=== PATIENT | female | born 1945 | race Caucasian/White ===

== ENCOUNTER 2018-07-18 09:39 | Emergency (ER) | payer MEDICARE, OTHER ==
[~2018-07-18] VITALS: Ht 160 cm; Wt 72.6 kg
[~2018-07-18 09:39] MED LIST: LOSARTAN; ZOCOR
--- OUTSIDE RECORDS SUMMARY | 2018-07-18 09:41 | XMS REPORT | Clinical Summary ---
Author Author L[facility] HospitalSevenSnap Entertainment GmbHSt[facility] [place] Address Unknown Phone Unavailable Care Team Providers Care Preschool Adviser Name Role Phone Pcp, No PCP Unavailable Allergies Comments Active Allergy Reactions Severity Noted Date Penicillins Anaphylaxis, High 04/08/2018 Hives Medications End Date Status Medication Sig Dispensed Refills Start Date Active difluprednate (DUREZOL) Apply to 0 0.05 % Drop eye(s). Active fluorometholone (FML) 0.1 1 drop every 0 % ophthalmic suspension 4 (four) hours. Active gabapentin (NEURONTIN) Take 300 mg 0 300 MG capsule by mouth 3 (three) times daily. Active losartan (COZAAR) 100 MG Take 100 mg 0 tablet by mouth daily. Active methenamine (HIPREX) 1 Take 1 g by 0 gram tablet mouth 2 (two) times daily with breakfast and dinner. Active omeprazole (PRILOSEC) 20 Take 20 mg by 0 MG capsule mouth daily. Active prednisoLONE acetate 1 drop 4 0 (PRED FORTE) 1 % (four) times ophthalmic suspension daily. Active simvastatin (ZOCOR) 20 MG Take 20 mg by 0 tablet mouth nightly. Active polymyxin B 1 drop every 0 sulf-trimethoprim 10,000 4 (four) unit- 1 mg/mL Drop hours. Active aspirin 81 MG EC tablet Take 81 mg by 0 mouth daily. Active albuterol sulfate Inhale by 0 (VENTOLIN INHL) mouth via inhaler. Active coenzyme Q10 100 mg Take 100 mg 0 capsule by mouth daily. Active calcium carbonate-vitamin Take 1 tablet 0 D3 (CALCIUM-VITAMIN D) by mouth 2 500 mg(1,250mg) -200 unit (two) times per tablet daily with breakfast and dinner. Active magnesium 30 mg tablet Take 30 mg by 0 mouth 2 (two) times daily. Active b complex vitamins Take 1 0 capsule capsule by mouth daily. Active multivitamin capsule Take 1 0 capsule by mouth daily. 04/08/2018 Discontinued metoclopramide HCl Take 10 mg by 0 (REGLAN) 10 MG tablet mouth 4 (four) times daily as needed for Nausea. 04/08/2018 Discontinued moxifloxacin (VIGAMOX) 1 drop 3 0 0.5 % ophthalmic solution (three) times daily. 04/08/2018 Discontinued prednisoLONE acetate 1 drop 4 0 (PRED MILD) 0.12 % (four) times ophthalmic suspension daily. Active Problems Not on file Encounters Care Team Description Date Type Specialty Juan Ramon Campos MD KERATOPLASTY,DSAEK 04/09/2018 Surgery Abby Robledo 04/09/2018 Anesthesia Event Juan Ramon Campos MD 04/09/2018 Hospital Encounter 04/08/2018 Hospital Pre-Admission Testing Encounter after 07/17/2017 Social History Date Tobacco Use Types Packs/Day Years Used Never Smoker Smokeless Tobacco: Never Used Alcohol Use Drinks/Week oz/Week Comments No Alcohol Habits Answer Date Recorded How often do you have a drink containing alcohol? Never 04/08/2018 How many drinks containing alcohol do you have on Not asked a typical day when you are drinking? How often do you have six or more drinks on one Not asked occasion? Sex Assigned at Date Recorded Not on file Industry Job Start Date Occupation Not on file Not on file Not on file Travel End Travel History Travel Start No recent travel history available. Last Filed Vital Signs Time Taken Vital Sign Reading 04/09/2018 12:40 PM [facility] Blood Pressure 124/60 04/09/2018 12:40 PM [facility] Pulse 60 04/09/2018 10:56 AM [facility] Temperature 36.4 C (97.6 F) 04/09/2018 12:40 PM [facility] Respiratory Rate 14 04/09/2018 12:40 PM [facility] Oxygen Saturation 95% - Inhaled Oxygen - Concentration 04/08/2018 9:43 AM [facility] Weight 70.3 kg (155 lb) 04/08/2018 9:43 AM [facility] Height 154.9 cm (5' 1") 04/08/2018 9:43 AM [facility] Body Mass Index 29.29 Plan of Treatment Not on file Implants Device Identifier Shelf Expiration Date Model / Serial / Lot Implanted Type Area Manufactur er 11/28/2021 [id number] / [id number] / Iol Tecnis Zcb00 25.0 Rafi Ophthalmol Left: Eye ADV MED [id number] - [id number] ogy OPTICS Implanted: Qty: 1 on 04/09/2018 by Juan Ramon Campos MD 04/19/2018 [id number] / [id number] / Cornea Dmek Tissue Ophthalmol Left: Eye Unknown Implanted: Qty: 1 on 04/09/2018 by Juan Ramon Sheldon MD 07/30/2019 [id number] / / [id number] Gas Tank Ispan Sf6 [id number] - Ophthalmol Left: Eye CELIA [id number] ogy LAB:SURG Implanted: Qty: 1 on 04/09/2018 by Juan Ramon Campos MD Procedures Comments Procedure Name Priority Date/Time Associated Diagnosis EXTRACTION,CATARACT W/IOL 04/09/2018 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
--- NOTE | 2018-07-18 09:55 | NUR ---
URINE SENT FOR CX OBTAINED PER ORDER
[2018-07-18] MEDS ORDERED: SODIUM CHLORIDE 0.9% 1000ML 1,000 ML IV SCH (10:15)
[2018-07-18] MEDS ORDERED: ACETAMINOPHEN 325 MG TAB PO ONE (10:15)
[2018-07-18 10:49] LABS: CLARITY,URINE SL CLOUDY (CLEAR); COLOR,URINE YELLOW (YELLOW); LEUKOCYTE ESTERASE ,URINE 1+ (NEGATIVE); NITRITE,URINE NEGATIVE (NEGATIVE); PROTEIN,URINE DIPSTICK TRACE (NEGATIVE)
[2018-07-18 10:50] LABS: BILIRUBIN,URINE NEGATIVE (NEGATIVE); KETONES,URINE NEGATIVE (NEGATIVE); URINE UROBILINOGEN 0.2 mg/dL (0.2 - 1)
[2018-07-18 11:11] LABS: BACTERIA,URINE MODERATE /HPF; EPITHELIAL CELLS,URINE RARE /LPF
[2018-07-18] MEDS ORDERED: CIPROFLOXACIN 500 MG TAB PO SCH (11:30)
[2018-07-18] MEDS ORDERED: METRONIDAZOLE 500MG/NS 100ML 100 ML IV ONE (11:30)
== END 2018-07-18 12:07 | disposition home or self-care (01) ==
LOC: FSED 09:39
DX: T83.511A Infection and inflammatory reaction due to indwelling urethral catheter, initial encounter (principal); Y84.6 Urinary catheterization as the cause of abnormal reaction of the patient, or of later complication, without mention of misadventure at the time of the procedure; Y92.009 Unspecified place in unspecified non-institutional (private) residence as the place of occurrence of the external cause; N30.91 Cystitis, unspecified with hematuria; R19.7 Diarrhea, unspecified; I10 Essential (primary) hypertension; E78.00 Pure hypercholesterolemia, unspecified
CPT/HCPCS: 81001; 81003; 87086; 87186; 87400; 99284; J7030

== ENCOUNTER 2019-03-17 10:23 | Emergency (ER) | payer OTHER, MEDICARE ==
[~2019-03-17] VITALS: Ht 154.9 cm; Wt 72.6 kg
--- NOTE | 2019-03-17 12:15 | Diagnostic Imaging Report ---
EXAM: TIB/FIB 2VW RT - HOPD, ANKLE 3 VIEW RT - HOPD DATE: 03/17/2019 12:00 AM INDICATION: Lower extremity pain COMPARISON: None FINDINGS: There is no evidence for acute fracture or dislocation. The ankle mortise is maintained. Bony mineralization is within normal limits. No focal lytic or blastic abnormality is identified. The surrounding soft tissues are unremarkable without evidence for radiopaque foreign body. IMPRESSION: No acute radiographic abnormality identified within the right tibia/fibula or ankle. Signed by: Dr. Kenneth Negron MD on 03/17/2019 12:12 PM
[2019-03-17 12:20] VITALS: BP 180/90
--- OUTSIDE RECORDS SUMMARY | 2019-03-20 13:13 | XMS REPORT | Summary of Care ---
Author Author [facility] Organization [facility] Address Unknown Phone Unavailable Care Team Providers Care Casting Machine Operator Helper Name Role Phone PCP Unavailable Reason for Visit * Reason Comments Retinal Problem * Consult, Test & Treat (Routine) Referred By Contact Referred To Contact Status Reason Specialty Diagnoses / Procedures Manjula Tucker MD [address] [address] Manjula Tucker MD [address] [place] [id number] Incomplete Ophth Retina Diagnoses Specialist / per [facility] Ophthalmology P rocedures RETINA NPE W ODS Encounter Details Care Team Description Date Type Department Manjula Tucker MD [address] [id number] Retinal Problem 12/24/2018 Office Visit [facility] Ophthalmology [address] [place] [id number] Allergies Comments Active Allergy Reactions Severity Noted Date Sulfamethoxazole W/Trimethoprim And other -cillins Penicillins Anaphylaxis, High 11/05/2011 Hives documented as of this encounter (statuses as of 12/25/2018) Medications End Date Status Medication Sig Dispensed Refills Start Date Active GABAPENTIN 0 Active METHENAMINE 0 Active METOCLOPRAMIDE HCL 0 Active OMEPRAZOLE 0 Active simvastatin (ZOCOR) 20 MG Take 20 mg by 0 tablet mouth every evening. Active losartan (COZAAR) 100 MG Take 100 mg 0 tablet by mouth daily. Active fluorometholone (FML) 0.1 Place 1 Drop 10 mL 10 01/25/201 % ophthalmic suspension into the 6 right eye daily. Active moxifloxacin (VIGAMOX) Apply 1 Drop 3 mL 1 0.5 % ophthalmic to eye 3 9 solutionIndications: times daily. Filamentary keratitis of right eye Active METOPROLOL SUCCINATE ER Take by 0 OR mouth. documented as of this encounter (statuses as of 12/25/2018) Active Problems Problem Noted Date Corneal edema 11/05/2011 Cataract 11/05/2011 Fuchs' corneal dystrophy 11/05/2011 documented as of this encounter (statuses as of 12/25/2018) Social History Date Tobacco Use Types Packs/Day Years Used Never Smoker Smokeless Tobacco: Never Used Drinks/Week oz/Week Comments Alcohol Use No Sex Assigned at Date Recorded Not on file Industry Job Start Date Occupation Not on file Not on file Not on file Travel End Travel History Travel Start No recent travel history available. documented as of this encounter Last Filed Vital Signs Not on filedocumented in this encounter Progress Notes * Manjula Tucker MD - 12/24/2018 8:00 AM CDT 73 y.o. year-old female with hx of phaco DMEK OD 12/2011 and phaco DMEK OS 04/02 019 for hx of Fuch's dystrohpy who presents with monocular "wavy lines" OD w/ in itial milder onset 11/28/18, see by Dr. Ibanez detention officer, and noted to have AMD. W aviness has been stable. PMH: Breast cancer s/p XRT 13 years ago HTN GERD Ocular Hx: DMEK OU CEIOL OU FH: No blindness or glaucoma; no AMD Social: Retired Never a smoker Gtt: FML OU QD ATs PRN Optos FA OU: no leakage OCT OD: PED with hyperreflective material adjacent OS: normal 1. 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 Phaco DMEK OU 3. Filamentary Keratitis resolved 4. Pseudophakia OU RTC Caitlin 6 months with OCT documented in this encounter Plan of Treatment Care Team Description Date Type Specialty Juan Ramon Campos MD [address] [place] [address] [phone] 02/24/2019 Office Visit Ophthalmology Manjula Tucker MD 1977 [facility] [id number] [place] [address] [phone] 06/26/2019 Office Visit Ophthalmology Health Maintenance Due Date Last Done Comments COLON CANCER SCREENIN1945 COLONOSCOPY MAMMOGRAM ANNUAL 1945 MEDICARE AWV 1945 TETANUS SHOT (ADULT) 02/28/1959 FALL SCREEN 02/28/2009 OSTEOPOROSIS SCREENING 02/28/2009 PREVNAR >=65 (PCV13) 02/28/2009 FLU VACCINE > 6 MONTHS 10/30/2018 PNEUMOVAX >=65 (PPSV23) Completed 06/01/2013 documented as of this encounter Implants Device Identifier Shelf Expiration Date Model / Serial / Lot Implanted Type Area Manufactur er 12/28/2011 / [id number] / Cornea Tissue - [id number] Right: Cornea Lions Eye Implanted: Qty: 1 on 12/19/2011 at [facility] 09/28/2014 25.0 / [id number] / Iol - [id number] Tecnis One Piece - Right: Eye RAIZA [id number] Implanted: Qty: 1 on 12/19/2011 at [facility] [place] documented as of this encounter Procedures Comments Procedure Name Priority Date/Time Associated Diagnosis FLUORESCEIN ANGIOGRAPHY - Routine 12/24/2018 Retinopathy OD - RIGHT EYE 9:36 AM CDT OCT, RETINA - OU - BOTH Routine 12/24/2018 Retinopathy EYES 8:27 AM CDT documented in this encounter Results * FLUORESCEIN ANGIOGRAPHY - OD - RIGHT EYE (12/24/2018 9:36 AM CDT) Specimen Narrative Performed At See note * OCT, RETINA - OU - BOTH EYES (12/24/2018 8:27 AM CDT) Specimen Narrative Performed At See note documented in this encounter Visit Diagnoses Diagnosis Retinopathy - Primary Background retinopathy, unspecified Intermediate stage nonexudative age-related macular degeneration of right eye documented in this encounter Insurance Type Payer Benefit Subscriber ID Effective Phone Address Plan / Dates Group Medicare MEDICARE MEDICARE xxxxxxxxxxx 2009- [address] Present [id number] [place] [address] Medicare [employer] - xxxxxx-xx 2014-P [phone] [address] [facility] MUTUAL OF [facility] [id number] documented as of this encounter
--- OUTSIDE RECORDS SUMMARY | 2019-03-20 13:13 | XMS REPORT ---
Author Author [facility] Address Unknown Phone Unavailable Care Team Providers Care Insole Rasper Name Role Phone Nelly HOLT Unavailable Unavailable Problems This patient has no known problems. Allergies, Adverse Reactions, Alerts This patient has no known allergies or adverse reactions. Medications This patient has no known medications. Results Test Description Test Time Test Comments Text Results Atomic Results Result Comments TIB/FIB 2VW RT - HOPD 2019-03-17 12:10:00 [place] [id number] Patient Name: STEVEN FRAUSTO MR #: [id number] : 1945 Age/Sex: 74/F Req #: [id number] Adm Physician: Ordered by: SHAHLA HOLT MD Report #: [id number] Location: [facility] Room/Bed: Procedure: [id number] HOPD/TIB/FIB 2VW RT - HOPD Exam Date: Exam Time: REPORT STATUS: Signed EXAM: TIB/FIB 2VW RT - HOPD, ANKLE 3 VIEW RT - HOPD DATE: 03/17/2019 12:00 AM INDICATION: Lower extremity pain COMPARISON: None FINDINGS: There is no evidence for acute fracture or dislocation. The ankle mortise is maintained. Bony mineralization is within normal limits. No focal lytic or blastic abnormality is identified. The surrounding soft tissues are unremarkable without evidence for radiopaque foreign body. IMPRESSION: No acute radiographic abnormality identified within the right tibia/fibula or ankle. Signed by: Dr. Kenneth Lomas MD on 03/17/2019 12:12 PM Dictated By: KENNETH LOMAS MD 11 Transcribed By: AUGUSTA on 03/17/191211 COPY TO: SHAHLA HOLT MD ANKLE 3 VIEW RT - HOPD 2019-03-17 12:10:00 [place] [address] Patient Name: STEVEN FRAUSTO MR #: [id number] : 1945 Age/Sex: 74/F Req #: [id number] Adm Physician: Ordered by: SHAHLA HOLT MD Report #: [id number] Location: [facility] Room/Bed: Procedure: [id number] HOPD/ANKLE 3 VIEW RT - HOPD Exam Date: Exam Time: REPORT STATUS: Signed EXAM: TIB/FIB 2VW RT - HOPD, ANKLE 3 VIEW RT - HOPD DATE : 03/17/2019 12:00 AM INDICATION: Lower extremity pain COMPARISON: None FINDINGS: There is no evidence for acute fracture or dislocation. The ankle mortise is maintained. Bony mineralization is within normal limits. No focal lytic or blastic abnormality is identified. The surrounding soft tissues are unremarkable without evidence for radiopaque foreign body. IMPRESSION: No acute radiographic abnormality identified within the right tibia/fibula or ankle. Signed by: Dr. Kenneth Lomas MD on 03/17/2019 12:12 PM Dictated By: KENNETH LOMAS MD 1212 Transcribed By: AUGUSTA on 03/17/19 1212 COPY TO: SHAHLA HOLT MD
== END 2019-03-17 12:24 | disposition home or self-care (01) ==
LOC: FSED 10:23
DX: S80.11XA Contusion of right lower leg, initial encounter (principal); S90.01XA Contusion of right ankle, initial encounter; V43.52XA Car driver injured in collision with other type car in traffic accident, initial encounter; Y92.488 Other paved roadways as the place of occurrence of the external cause; I10 Essential (primary) hypertension; E78.5 Hyperlipidemia, unspecified
CPT/HCPCS: 99283